=== PATIENT | male | born 1960 | race Caucasian/White ===

== ENCOUNTER 2024-11-12 22:00 | Observation (INO) | payer OTHER ==
--- NOTE | 2024-11-12 22:18 | ERPHSYRPT ---
- History of Present Illness Time Seen by Provider: 11/12/24 22:09 Historian: patient Exam Limitations: no limitations Patient Subjective Stated Complaint: "I was doing some light work about a half hour ago and I got this pain in my left chest that kind of feels like a marlen horse pressure. I thought it would go away but it hasn't and I did have to have open heart about 13 years ago". Triage Nursing Assessment: Pt presents to ER with complaints of left sided chest pains that started approx 15 minutes [employer]. Pt is alert and oriented x 3. Skin is pink, warm, and dry. Respirations are easy. Denies shortness of breath, dizziness, nausea/vomiting. Pt describes the pain as "like a marlen horse" and rates pain 2/10 scale. States it is not radiating anywhere. 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 Physician History: 64-year-old male with history of coronary artery disease with CABG, hypertension, hyperlipidemia presented in the ER with complaint of left-sided chest pain sudden onset while he was doing some light activity at home almost half an hour prior to arrival. Patient reported it felt like a charley horse/pressure sensation in left lower chest and soreness of left lower chest which is getting better now but still reports 2/10 intensity. Patient took 2 full dose aspirin prior to arrival. Denies any palpitations, difficulty breathing, dizziness/lightheadedness. Allergies/Adverse Reactions: No Known Drug Allergies Allergy (Unverified 11/12/24 22:15) Home Medications: Amlodipine Besylate 5 mg [Norvasc 5 mg] 5 mg PO DAILY 11/12/24 [History] Evolocumab [Repatha Syringe] 140 mg SQ UD 11/12/24 [History] Ezetimibe 10 mg [Zetia 10 MG] 10 mg PO DAILY 11/12/24 [History] Ezetimibe/Rosuvastatin Calcium [Rosuvastatin-Ezetimibe 40-10Mg] 1 each PO DAILY 11/12/24 [History] Losartan Potassium 50 mg [Cozaar 50 MG] 50 mg PO DAILY 11/12/24 [History] Metoprolol Succinate 25 mg Xl* [Toprol-Xl 25MG Tablets] 25 mg PO DAILY 11/12/24 [History] Hx Tetanus, Diphtheria Vaccination/Date Given: Yes Hx Influenza Vaccination/Date Given: No Hx Pneumococcal Vaccination/Date Given: No Immunizations Up to Date: No Travel Risk - International Travel Have you traveled outside of the country in past 3 weeks: No - Emerging Infectious Disease Are you exhibiting symptoms associated with any current EIDs: No - Review of Systems Constitutional: No Symptoms Ears, Nose, & Throat: No Symptoms Respiratory: No Symptoms Cardiac: Chest Pain Abdominal/Gastrointestinal: No Symptoms Genitourinary Symptoms: No Symptoms Musculoskeletal: No Symptoms Skin: No Symptoms Neurological: No Symptoms Psychological: No Symptoms Endocrine: No Symptoms Hematologic/Lymphatic: No Symptoms - Past Medical History Pertinent Past Medical History: Yes Neurological History: No Pertinent History ENT History: No Pertinent History Cardiac History: Coronary Artery Disease, High Cholesterol, Hypertension Respiratory History: No Pertinent History Endocrine Medical History: No Pertinent History Musculoskeletal History: No Pertinent History GI Medical History: No Pertinent History History: No Pertinent History Psycho-Social History: No Pertinent History Male Reproductive Disorders: No Pertinent History - Past Surgical History Past Surgical History: Yes Neuro Surgical History: No Pertinent History Cardiac: CABG Respiratory: No Pertinent History Gastrointestinal: Appendectomy Genitourinary: No Pertinent History Musculoskeletal: No Pertinent History Male Surgical History: No Pertinent History - Social History Smoking Status: Never smoker Exposure to second hand smoke: No Drug Use: none - Social Determinants of Health Will the patient participate in the screening: Yes Do you worry about a steady place to live?: No Do you have any problems with any of the following?: No known problems In the past 12 months,have you had to go without utilities?: No Transportation Issues: No Has anyone in your support network made you feel unsafe?: No Have you or anyone in your house had to go w/o enough food: No - Nursing Vital Signs Nursing Vital Signs: Initial Vital Signs Pulse Rate 49 L 11/12/24 22:01 Respiratory Rate 12 11/12/24 22:01 Blood Pressure 173/94 11/12/24 22:01 O2 Sat by Pulse Oximetry 98 11/12/24 22:01 Pain Scale Pain Intensity 2 - Physical Exam General Appearance: no apparent distress Eye Exam: PERRL/EOMI Ears, Nose, Throat Exam: normal ENT inspection Neck Exam: normal inspection, non-tender, supple, full range of motion Respiratory Exam: normal breath sounds, lungs clear Cardiovascular Exam: regular rate/rhythm, normal heart sounds Gastrointestinal/Abdomen Exam: soft, normal bowel sounds, No tenderness Back Exam: normal inspection, normal range of motion Extremity Exam: normal inspection, normal range of motion Neurologic Exam: alert, oriented x 3, cooperative Skin Exam: normal color SpO2 Interpretation: normal SpO2: 98 O2 Delivery: Room Air - Course EKG Interpreted by Me: RATE ([id number]), Sinus Francisco, NORMAL AXIS, NORMAL INTERVALS, Non-specific ST Changes Ordered Tests: Active Orders 24 hr Category Date Time Status Call Taker STAT Care 11/12/24 22:16 Active EKG-ER Only STAT Care 11/12/24 22:15 Active IV Insertion STAT Care 11/12/24 22:15 Active CHEST 1 VIEW (PORTABLE) Stat Exams 11/12/24 22:15 Taken CBC W DIFF Stat Lab 11/12/24 22:20 Completed CMP Stat Lab 11/12/24 22:20 Completed NT PRO BNPII Stat Lab 11/12/24 22:20 Completed TROPONIN Q4H Lab 11/12/24 22:20 Completed TROPONIN Q4H Lab 11/13/24 02:15 Ordered TROPONIN Q4H Lab 11/13/24 06:15 Ordered Medication Summary Generic Name Dose Route Start Last Admin Trade Name Freq PRN Reason Stop Dose Admin Sodium Chloride 1,000 mls @ 999 mls/hr 11/12/24 23:17 11/12/24 23:20 Sodium Chloride 0.9% 1000 Ml IV 11/13/24 00:17 999 mls/hr .Q1H1M STA Administration Discontinued Medications Generic Name Dose Route Start Last Admin Trade Name Freq PRN Reason Stop Dose Admin Sodium Chloride Confirm 11/12/24 23:19 Sodium Chloride 0.9% 1000 Ml Administered 11/12/24 23:20 Dose 1,000 mls @ ud .ROUTE .STK-MED ONE Lab/Rad Data: Laboratory Result Diagrams 11/12/24 22:20 11/12/24 22:20 Laboratory Results 11/12/24 11/12/24 11/12/24 Range/Units 22:20 22:20 22:20 WBC 6.9 (4.23-9.07) x10^3/uL RBC 4.63 (4.63-6.08) x10^6/uL Hgb 14.4 (13.7-17.5) g/dL Hct 42.6 (40.1-51.0) % MCV 92.0 (79.0-92.2) fL MCH 31.1 (25.7-32.2) pg MCHC 33.8 (32.3-36.5) g/dL RDW 11.9 (11.6-14.4) % Plt Count 196 (163-337) x10^3/uL MPV 10.0 (9.4-12.4) fL Gran % 41.0 (34.0-67.9) % Immature Gran % (Auto) 0.1 (0.001-0.429) % Nucleat RBC Rel Count 0.0 (0.00-0.2) % Eos # (Auto) 0.14 (0.04-0.54) x10^3/uL Immature Gran # (Auto) 0.01 (0.001-0.031) x10^3u/L Absolute Lymphs (auto) 3.28 (1.32-3.57) x10^3/uL Absolute Monos (auto) 0.60 (0.30-0.82) x10^3/uL Absolute Nucleated RBC 0.00 (0.00-0.012) x10^3u/L Lymphocytes % 47.8 (21.8-53.1) % Monocytes % 8.7 (5.3-12.2) % Eosinophils % 2.0 (0.8-7.0) % Basophils % 0.4 (0.2-1.2) % Absolute Granulocytes 2.80 (1.78-5.38) x10^3/uL Basophils # 0.03 (0.01-0.08) x10^3/uL Sodium 139 (135-145) mmol/L Potassium 4.3 (3.5-5.1) mmol/L Chloride 102 (98-107) mmol/L Carbon Dioxide 20 L (22-30) mmol/L Anion Gap 20.7 H (5-15) MEQ/L BUN 17 (9-20) mg/dL Creatinine 0.88 (0.66-1.25) mg/dL Estimated GFR 97.2 ML/MIN Glucose 110 H (74-106) mg/dL Calcium 9.4 (8.4-10.2) mg/dL Total Bilirubin 1.60 H (0.2-1.3) mg/dL AST 58 (17-59) U/L ALT 36 (0-50) U/L Alkaline Phosphatase 50 (38-126) U/L Troponin I < 0.012 (0.000-0.033) ng/mL NT-Pro-B Natriuret Pep < 20.0 (<300) pg/mL Serum Total Protein 8.0 (6.3-8.2) g/dL Albumin 5.1 H (3.5-5.0) g/dL - Progress Progress: improved, re-examined Air Movement: fair, good Progress Note: 11/12/24 23:39 Differential diagnosis, acute coronary syndrome, pneumonia, pneumothorax, chest wall pain, atypical chest pain, pulmonary embolism 64-year-old is evaluated in the ER for left lower chest pain started almost half an hour prior to arrival with started to improve after taking to full dose aspirin. Patient did not want any pain medication. EKG is sinus rhythm with no acute ST elevations. Chest x-ray is negative for any acute cardiopulmonary findings interpreted by me, official final read is pending. Has normal white count, chemistries fairly unremarkable with some element of dehydration and given fluids. On reevaluation patient still report having mild discomfort but does not want any pain medication. I believe with patient's history of CABG and pain starting less than half an hour prior to arrival, initial troponin are not very reliable and has risk factors which warrant trending of cardiac enzymes, offered observation admission which she agreed. I have discussed with Dr. Oneil, reviewed history, workup and patient is being admitted to hospitalist service. Complexity of problems addressed: Moderate to high acuity Complexity of data reviewed/analyzed: Moderate Risk of complication: Moderate to high Blood Culture(s) Obtained: No Antibiotics given: No Discussed with : Castillo Will see patient in: hospital (observation) Counseled pt/family regarding: lab results, diagnosis, need for follow-up, rad results Medical Desision Making - Discussion of managment Care discussed with:: hospitalist Reviewed:: Test results Agreed on:: Treatment plan, place in obs Will see patient: in hospital - Diagnostic Testing Diagnostic test were ordered, analyzed, and reviewed by me: Yes Radiological Interpretation: Interpreted by me, Reviewed by me - Risk of complications Low Risk: (You) The pt has a high risk of morbidity or mortality based on: Decision regarding hospitilization or escalation of hosp level of care ( what is is what is you exported is this something what is a wrong with him) - Departure Departure Disposition: Observation Clinical Impression: Chest pain, rule out acute myocardial infarction Condition: Stable Critical Care Time: No Referrals: DOCTOR,NO FAMILY [Primary Care Provider, UNKNOWN] - Follow up/PCP as directed
[2024-11-12 22:27] LABS: BASOPHIL % 0.4 % (0.2-1.2); Basophil (Absolute #) 0.03 x10^3/uL (0.01-0.08); Eosinophil (Absolute #) 0.14 x10^3/uL (0.04-0.54); Hematocrit 42.6 % (40.1-51.0); Hemoglobin 14.4 g/dL (13.7-17.5); IMMATURE GRAN # 0.01 x10^3u/L (0.001-0.031); IMMATURE GRAN % 0.1 % (0.001-0.429); Lymphocyte (Absolute #) 3.28 x10^3/uL (1.32-3.57); Lymphocytes % 47.8 % (21.8-53.1); Mean Corpuscular Hemoglobin 31.1 pg (25.7-32.2); Mean Corpuscular Hgb Concent. 33.8 g/dL (32.3-36.5); Monocytes % 8.7 % (5.3-12.2); Platelet Count 196 x10^3/uL (163-337); Red Blood Count 4.63 x10^6/uL (4.63-6.08); Red Cell Distribution Width 11.9 % (11.6-14.4); White Blood Count 6.9 x10^3/uL (4.23-9.07)
[2024-11-12 22:53] LABS: ALBUMIN 5.1 g/dL (3.5-5.0); ALKALINE PHOSPHATASE 50 U/L (38-126); ANION GAP 20.7 MEQ/L (5-15); BLOOD UREA NITROGEN 17 mg/dL (9-20); CHLORIDE 102 mmol/L (98-107); Calcium 9.4 mg/dL (8.4-10.2); Carbon Dioxide 20 mmol/L (22-30); Creatinine 1 0.88 mg/dL (0.66-1.25); EST GLOMERULAR FILTRATION RATE 97.2 ML/MIN; Glucose 110 mg/dL (74-106); Potassium 4.3 mmol/L (3.5-5.1); SGOT/AST 58 U/L (17-59); SGPT/ALT 36 U/L (0-50); SODIUM 139 mmol/L (135-145); TROPONIN < 0.012 ng/mL (0.000-0.033)
[2024-11-12] MEDS ORDERED: Sodium Chloride 0.9% 1000 ML 1,000 ML ONE (23:19)
[2024-11-12] MEDS: Sodium Chloride 0.9% 1000 ML 1,000 ML IV STA (23:20)
[2024-11-13] MEDS ORDERED: Nitrostat 0.4 MG Tablet SL PRN (00:42)
[2024-11-13] MEDS ORDERED: TYLENOL 325 MG PO PRN (00:42)
--- NOTE | 2024-11-13 01:10 | PCM.HP ---
History of Present Illness - Chief Complaint Chief Complaint: chest pain Date: 11/13/24 History of Present Illness: 64-year-old man with history of CAD with remote CABG, hypertension, and dyslipidemia, who presents with episode of chest pain. Patient was working in his garage when he had the sudden onset of left sided, sharp chest pain, described as feeling like a "charley horse", intermittent, lasting about 5 to 10 minutes. Worsened with leaning over, and relieved by standing up or lifting his arm. No associated dyspnea, nausea, diaphoresis, or numbness. He notes that he has been training for a triathlon next week, and ran 4 miles yesterday without any difficulty or similar symptoms. He has not had any recurrence of the symptoms since the initial 10-minute period. He had a prior CABG 13 years ago, but has had no problems since then. He has been compliant with his medications. He notes that his registered nurse renal put him on Repatha a few months ago. - Review of Systems All Other Systems: Reviewed and Negative Medications & Allergies Home Medications: Home Medication List Amlodipine Besylate 5 mg [Norvasc 5 mg] 5 mg PO DAILY 11/12/24 [History Confirmed 11/12/24] Evolocumab [Repatha Syringe] 140 mg SQ UD 11/12/24 [History Confirmed 11/12/24] Ezetimibe 10 mg [Zetia 10 MG] 10 mg PO DAILY 11/12/24 [History Confirmed 11/12/24] Ezetimibe/Rosuvastatin Calcium [Rosuvastatin-Ezetimibe 40-10Mg] 1 each PO DAILY 11/12/24 [History Confirmed 11/12/24] Losartan Potassium 50 mg [Cozaar 50 MG] 50 mg PO DAILY 11/12/24 [History Confirmed 11/12/24] Metoprolol Succinate 25 mg Xl* [Toprol-Xl 25MG Tablets] 25 mg PO DAILY 11/12/24 [History Confirmed 11/12/24] Aspirin EC 81 mg [Ecotrin 81 mg] 162 mg PO DAILY 11/13/24 [History Confirmed 11/13/24] Allergies/Adverse Reactions: Allergies Allergy/AdvReac Type Severity Reaction Status Date / Time No Known Drug Allergies Allergy Unverified 11/12/24 22:15 - Past Medical History Past Medical History: Yes Neurological History: No Pertinent History ENT History: No Pertinent History Cardiac History: Coronary Artery Disease, High Cholesterol, Hypertension Respiratory History: No Pertinent History Endocrine Medical History: No Pertinent History Musculoskelatal History: No Pertinent History GI Medical History: No Pertinent History History: No Pertinent History Pyscho-Social History: No Pertinent History Male Reproductive Disorders: No Pertinent History - Past Surgical History Past Surgical History: Yes Neuro Surgical History: No Pertinent History Cardiac History: CABG Respiratory Surgery: No Pertinent History GI Surgical History: Appendectomy Genitourinary Surgical Hx: No Pertinent History Musculskeletal Surgical Hx: No Pertinent History Male Surgical History: No Pertinent History Significant Family History: heart disease (Father with [place] at 60 y/o) - Social History Smoking Status: Never smoker Exposure to second hand smoke: No Alcohol: Occasionally Drug Use: none - Social Determinants of Health Will the patient participate in the screening: Yes Do you worry about a steady place to live?: No Do you have any problems with any of the following?: No known problems In the past 12 months,have you had to go without utilities?: No Have you or anyone in your house had to go without enough: No Transportation Issues: No Has anyone in your support network made you feel unsafe?: No Does the patient want assistance with any of the above?: No - Physical Exam Vital Signs: Vital Signs - 24 hr Temp Pulse Pulse Resp BP BP Pulse Ox 11/13/24 00:42 97.0 F 49 L 18 168/80 96 11/13/24 00:00 46 L 19 110/80 97 11/12/24 23:44 98 11/12/24 23:30 45 L 19 115/81 97 11/12/24 23:05 46 L 18 121/80 96 11/12/24 22:02 97.8 F 57 L 60 18 173/94 98 11/12/24 22:01 49 L 12 173/94 98 Physical Exam GEN: Sitting up in bed in no acute distress. HENT: Normocephalic, atraumatic. Moist mucous membranes. EYES: Normal inspection, anicteric sclera, extraocular movements intact. NECK: Supple, full range of motion CV: Regular rate and rhythm, no murmurs, no gallops. No JVD or edema. PULM: Clear to auscultation bilaterally, no work of breathing. On room air. ABD: Nondistended, nontender. MSK: No joint effusions, full range of motion SKIN: No rashes, normal color. NEURO: Face symmetric, no focal motor or sensory deficits. PSYCH: Alert, oriented x 3 Results - Labs Lab/Micro Results: Lab Results-Last 24 Hours 11/12/24 11/12/24 11/12/24 Range/Units 22:20 22:20 22:20 WBC 6.9 (4.23-9.07) x10^3/uL RBC 4.63 (4.63-6.08) x10^6/uL Hgb 14.4 (13.7-17.5) g/dL Hct 42.6 (40.1-51.0) % MCV 92.0 (79.0-92.2) fL MCH 31.1 (25.7-32.2) pg MCHC 33.8 (32.3-36.5) g/dL RDW 11.9 (11.6-14.4) % Plt Count 196 (163-337) x10^3/uL MPV 10.0 (9.4-12.4) fL Gran % 41.0 (34.0-67.9) % Immature Gran % (Auto) 0.1 (0.001-0.429) % Nucleat RBC Rel Count 0.0 (0.00-0.2) % Eos # (Auto) 0.14 (0.04-0.54) x10^3/uL Immature Gran # (Auto) 0.01 (0.001-0.031) x10^3u/L Absolute Lymphs (auto) 3.28 (1.32-3.57) x10^3/uL Absolute Monos (auto) 0.60 (0.30-0.82) x10^3/uL Absolute Nucleated RBC 0.00 (0.00-0.012) x10^3u/L Lymphocytes % 47.8 (21.8-53.1) % Monocytes % 8.7 (5.3-12.2) % Eosinophils % 2.0 (0.8-7.0) % Basophils % 0.4 (0.2-1.2) % Absolute Granulocytes 2.80 (1.78-5.38) x10^3/uL Basophils # 0.03 (0.01-0.08) x10^3/uL Sodium 139 (135-145) mmol/L Potassium 4.3 (3.5-5.1) mmol/L Chloride 102 (98-107) mmol/L Carbon Dioxide 20 L (22-30) mmol/L Anion Gap 20.7 H (5-15) MEQ/L BUN 17 (9-20) mg/dL Creatinine 0.88 (0.66-1.25) mg/dL Estimated GFR 97.2 ML/MIN Glucose 110 H (74-106) mg/dL Calcium 9.4 (8.4-10.2) mg/dL Total Bilirubin 1.60 H (0.2-1.3) mg/dL AST 58 (17-59) U/L ALT 36 (0-50) U/L Alkaline Phosphatase 50 (38-126) U/L Troponin I < 0.012 (0.000-0.033) ng/mL NT-Pro-B Natriuret Pep < 20.0 (<300) pg/mL Serum Total Protein 8.0 (6.3-8.2) g/dL Albumin 5.1 H (3.5-5.0) g/dL - Radiology Impressions Radiology Exams & Impressions: Radiology Procedures Category Date Time Status CHEST 1 VIEW (PORTABLE) Stat Exams 11/12/24 22:15 Taken Chest x-ray no infiltrates, effusions, or edema. (Images personally reviewed.) Assessment/Plan (1) Chest pain, rule out acute myocardial infarction Current Visit: Yes Status: Acute Assessment & Plan: 64-year-old man with history of CAD, hypertension, here with chest pain. ## Chest pain due to patient's history of CAD, main element of concern would be recurrent acute coronary syndrome. However, the pain is very atypical for this, occurring essentially at rest, worsened by body position and relieved by straightening, with no associated anginal equivalent symptoms. As well, patient is highly active, with no symptoms after running 4 miles yesterday. While differential includes pulmonary and psychiatric causes, most likely it was musculoskeletal in nature. However, worth observing to rule out the risk of severe compromise from ACS. Place in observation Monitor on telemetry Serial troponins PRN EKG for chest pain PRN nitroglycerin Follow-up with PCP for consideration of outpatient stress testing, but given that patient is highly active at baseline, if no evidence of acute [place], likely low need for further restratification ## CAD Continue home aspirin 162 mg daily, Crestor 40, Zetia 10, Toprol-XL 25 ## Hypertension blood pressure controlled currently. Continue Cozaar 50, amlodipine 5, Toprol-XL 25 CODE STATUS: Full code Prophylaxis: Low risk, encourage ambulation Diet: Regular Dispo: Place in observation, expect discharge to home later today once rule out [place] Entirety of encounter took place via live audio/video telemedicine device, with remote physician and patient in hospital, with the assistance of bedside nurse. Code(s): R07.9 - CHEST PAIN, UNSPECIFIED Telemedicine Encounter - Telemedicine Encounter Telemedicine Encounter: "The entirety of this encounter was performed via Telemedicine" This visit was performed using real-time audio and video connection between my location and thepatients locationwith the assistance of a surrogateat the patients location. Written or verbal consent was obtained from the patient/guardian to perform this visit [email or web address] . Any patient questions regarding the telemedicine interaction were answered.
[2024-11-13 05:16] VITALS: PULSE 52; O2SAT 97
[2024-11-13 05:20] LABS: Hemoglobin 13.5 g/dL (13.7-17.5); Mean Cell Volume 93.7 fL (79.0-92.2); Mean Corpuscular Hemoglobin 31.6 pg (25.7-32.2); Mean Corpuscular Hgb Concent. 33.8 g/dL (32.3-36.5); Mean Platelet Volume 10.2 fL (9.4-12.4); Platelet Count 184 x10^3/uL (163-337); Red Blood Count 4.27 x10^6/uL (4.63-6.08)
[2024-11-13 05:34] LABS: ANION GAP 15.9 MEQ/L (5-15); Calcium 9.1 mg/dL (8.4-10.2); Creatinine 1 0.8 mg/dL (0.66-1.25); EST GLOMERULAR FILTRATION RATE 100.1 ML/MIN
[2024-11-13 07:02] VITALS: BP 124/70; RESP 13; TEMP 98.3
--- NOTE | 2024-11-13 08:39 | XRAY ---
Indication: Chest pain. Comparison: None Portable demonstrates chunky right paratracheal calcified nodes and a few bibasilar calcified granulomas favoring old granulomatous disease. Remaining heart and lungs are unremarkable with incidental CABG. Bony thorax intact with osteopenia and minimal degenerative changes. Impression: Nonacute chest with chronic features.
--- NOTE | 2024-11-13 09:16 | PCM.DS ---
Discharge Summary Date of Admission: 11/13/24 00:30 Date of Discharge: 11/13/24 Admitting Physician: SELINA TIDWELL MD Primary Care Provider: NO FAMILY DOCTOR Allergies Allergies No Known Drug Allergies Allergy (Unverified 11/12/24 22:15) Hospital Summary - Hospital Course Hospital Course: Mr. Crenshaw is a 64 year old male with with a history of coronary artery disease status post CABG, hypertension, and dyslipidemia who was admitted for evaluation of atypical chest pain. The episode occurred at rest while bending over in his garage and was described as sharp, left-sided discomfort, lasting 510 minutes, and relieved with positional changes. There were no associated exertional symptoms, dyspnea, diaphoresis, or other anginal equivalents. He reported no recurrence of symptoms and noted high functional capacity, having recently run 4 miles without limitation. During his observation stay, the patient remained hemodynamically stable. Serial troponins were negative, and EKGs showed no ischemic changes. Chest X-ray demonstrated chunky right paratracheal calcified lymph nodes and scattered bibasilar calcified granulomas, most consistent with remote granulomatous disease; no acute cardiopulmonary findings were noted. Given complete resolution of pain, negative cardiac workup, and the absence of high-risk features, the presentation is most consistent with musculoskeletal chest wall pain. The patient is requesting discharge home and is clinically appropriate for outpatient management. 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 He will continue his current cardiac and antihypertensive regimen, including aspirin, statin, beta-olga, and antihypertensives. I spent 35 minutes [id number] with the patient on the day of discharge performing discharge exam, discussing hospital stay and discharge instructions with patient and caregivers, preparation of discharge records, prescriptions & referral forms and addressing any questions/concerns the patient had as documented above. - Vitals & Intake/Output Vital Signs: Vital Signs Temperature 98.3 F 11/13/24 07:02 Pulse Rate 52 L 11/13/24 07:02 Respiratory Rate 13 11/13/24 07:02 Blood Pressure 124/70 11/13/24 07:02 O2 Sat by Pulse Oximetry 97 11/13/24 07:02 Intake & Output: Intake & Output 11/10/24 11/11/24 11/12/24 11/13/24 11:59 11:59 11:59 11:59 Intake Total 350 Balance 350 Weight 84.7 kg - Lab Result Diagrams: 11/13/24 05:10 11/13/24 05:10 Lab Results-Last 24 Hrs: Lab Results-Last 24 Hours 11/12/24 11/12/24 11/12/24 Range/Units 22:20 22:20 22:20 WBC 6.9 (4.23-9.07) x10^3/uL RBC 4.63 (4.63-6.08) x10^6/uL Hgb 14.4 (13.7-17.5) g/dL Hct 42.6 (40.1-51.0) % MCV 92.0 (79.0-92.2) fL MCH 31.1 (25.7-32.2) pg MCHC 33.8 (32.3-36.5) g/dL RDW 11.9 (11.6-14.4) % Plt Count 196 (163-337) x10^3/uL MPV 10.0 (9.4-12.4) fL Gran % 41.0 (34.0-67.9) % Immature Gran % (Auto) 0.1 (0.001-0.429) % Nucleat RBC Rel Count 0.0 (0.00-0.2) % Eos # (Auto) 0.14 (0.04-0.54) x10^3/uL Immature Gran # (Auto) 0.01 (0.001-0.031) x10^3u/L Absolute Lymphs (auto) 3.28 (1.32-3.57) x10^3/uL Absolute Monos (auto) 0.60 (0.30-0.82) x10^3/uL Absolute Nucleated RBC 0.00 (0.00-0.012) x10^3u/L Lymphocytes % 47.8 (21.8-53.1) % Monocytes % 8.7 (5.3-12.2) % Eosinophils % 2.0 (0.8-7.0) % Basophils % 0.4 (0.2-1.2) % Absolute Granulocytes 2.80 (1.78-5.38) x10^3/uL Basophils # 0.03 (0.01-0.08) x10^3/uL Sodium 139 (135-145) mmol/L Potassium 4.3 (3.5-5.1) mmol/L Chloride 102 (98-107) mmol/L Carbon Dioxide 20 L (22-30) mmol/L Anion Gap 20.7 H (5-15) MEQ/L BUN 17 (9-20) mg/dL Creatinine 0.88 (0.66-1.25) mg/dL Estimated GFR 97.2 ML/MIN Glucose 110 H (74-106) mg/dL Calcium 9.4 (8.4-10.2) mg/dL Total Bilirubin 1.60 H (0.2-1.3) mg/dL AST 58 (17-59) U/L ALT 36 (0-50) U/L Alkaline Phosphatase 50 (38-126) U/L Troponin I < 0.012 (0.000-0.033) ng/mL NT-Pro-B Natriuret Pep < 20.0 (<300) pg/mL Serum Total Protein 8.0 (6.3-8.2) g/dL Albumin 5.1 H (3.5-5.0) g/dL 11/13/24 11/13/24 11/13/24 Range/Units 02:01 05:10 05:10 WBC 6.0 (4.23-9.07) x10^3/uL RBC 4.27 L (4.63-6.08) x10^6/uL Hgb 13.5 L (13.7-17.5) g/dL Hct 40.0 L (40.1-51.0) % MCV 93.7 H (79.0-92.2) fL MCH 31.6 (25.7-32.2) pg MCHC 33.8 (32.3-36.5) g/dL RDW 12.0 (11.6-14.4) % Plt Count 184 (163-337) x10^3/uL MPV 10.2 (9.4-12.4) fL Gran % (34.0-67.9) % Immature Gran % (Auto) (0.001-0.429) % Nucleat RBC Rel Count (0.00-0.2) % Eos # (Auto) (0.04-0.54) x10^3/uL Immature Gran # (Auto) (0.001-0.031) x10^3u/L Absolute Lymphs (auto) (1.32-3.57) x10^3/uL Absolute Monos (auto) (0.30-0.82) x10^3/uL Absolute Nucleated RBC (0.00-0.012) x10^3u/L Lymphocytes % (21.8-53.1) % Monocytes % (5.3-12.2) % Eosinophils % (0.8-7.0) % Basophils % (0.2-1.2) % Absolute Granulocytes (1.78-5.38) x10^3/uL Basophils # (0.01-0.08) x10^3/uL Sodium (135-145) mmol/L Potassium (3.5-5.1) mmol/L Chloride (98-107) mmol/L Carbon Dioxide (22-30) mmol/L Anion Gap (5-15) MEQ/L BUN (9-20) mg/dL Creatinine (0.66-1.25) mg/dL Estimated GFR ML/MIN Glucose (74-106) mg/dL Calcium (8.4-10.2) mg/dL Total Bilirubin (0.2-1.3) mg/dL AST (17-59) U/L ALT (0-50) U/L Alkaline Phosphatase (38-126) U/L Troponin I < 0.012 < 0.012 (0.000-0.033) ng/mL NT-Pro-B Natriuret Pep (<300) pg/mL Serum Total Protein (6.3-8.2) g/dL Albumin (3.5-5.0) g/dL // Range/Units 05:10 WBC (4.23-9.07) x10^3/uL RBC (4.63-6.08) x10^6/uL Hgb (13.7-17.5) g/dL Hct (40.1-51.0) % MCV (79.0-92.2) fL MCH (25.7-32.2) pg MCHC (32.3-36.5) g/dL RDW (11.6-14.4) % Plt Count (163-337) x10^3/uL MPV (9.4-12.4) fL Gran % (34.0-67.9) % Immature Gran % (Auto) (0.001-0.429) % Nucleat RBC Rel Count (0.00-0.2) % Eos # (Auto) (0.04-0.54) x10^3/uL Immature Gran # (Auto) (0.001-0.031) x10^3u/L Absolute Lymphs (auto) (1.32-3.57) x10^3/uL Absolute Monos (auto) (0.30-0.82) x10^3/uL Absolute Nucleated RBC (0.00-0.012) x10^3u/L Lymphocytes % (21.8-53.1) % Monocytes % (5.3-12.2) % Eosinophils % (0.8-7.0) % Basophils % (0.2-1.2) % Absolute Granulocytes (1.78-5.38) x10^3/uL Basophils # (0.01-0.08) x10^3/uL Sodium 139 (135-145) mmol/L Potassium 4.0 (3.5-5.1) mmol/L Chloride 105 (98-107) mmol/L Carbon Dioxide 22 (22-30) mmol/L Anion Gap 15.9 H (5-15) MEQ/L BUN 13 (9-20) mg/dL Creatinine 0.80 (0.66-1.25) mg/dL Estimated GFR 100.1 ML/MIN Glucose 102 (74-106) mg/dL Calcium 9.1 (8.4-10.2) mg/dL Total Bilirubin (0.2-1.3) mg/dL AST (17-59) U/L ALT (0-50) U/L Alkaline Phosphatase (38-126) U/L Troponin I (0.000-0.033) ng/mL NT-Pro-B Natriuret Pep (<300) pg/mL Serum Total Protein (6.3-8.2) g/dL Albumin (3.5-5.0) g/dL - Radiology Exams Ordered Rad Exams-Entire Visit: Radiology Procedures Category Date Time Status CHEST 1 VIEW (PORTABLE) Stat Exams 11/12/24 22:15 Completed - Procedures and Test Procedures and Tests throughout Hospitalization: Therapy Orders & Screens 11/13/24 00:42 EKG PRN Comment: Discharge Exam General Appearance: no apparent distress Neurologic Exam: alert, oriented x 3, cooperative Eye Exam: PERRL Ears, Nose, Throat Exam: normal ENT inspection Neck Exam: normal inspection Respiratory Exam: normal breath sounds, lungs clear Cardiovascular Exam: regular rate/rhythm, normal heart sounds Gastrointestinal/Abdomen Exam: soft, normal bowel sounds Male Genitalia Exam: deferred Rectal Exam: deferred Back Exam: normal inspection Extremity Exam: normal inspection Skin Exam: normal color Final Diagnosis/Problem List - Final Discharge Diagnosis/Problem (1) Chest pain, rule out acute myocardial infarction Current Visit: Yes Status: Acute Assessment & Plan: -No features concerning for acute coronary syndrome -Negative troponin series and unremarkable EKG --Symptoms resolved without recurrence -advised to monitor for any recurrence of symptoms. Follow up with outpatient cardiology. Return to ED for any chest discomfort, dyspnea, or other concerning symptoms Code(s): R07.9 - CHEST PAIN, UNSPECIFIED (2) CAD (coronary artery disease) Current Visit: Yes Status: Acute Assessment & Plan: -Clinically stable without evidence of ischemia -Continue current cardiac medications including aspirin 162 mg daily, Crestor 40 mg, Zetia 10 mg, and Repatha per cardiology. Maintain regular outpatient cardiology follow-up Code(s): I25.10 - ATHSCL HEART DISEASE OF [place] CORONARY ARTERY W/O ANG PCTRS (3) HTN (hypertension) Current Visit: Yes Status: Acute Assessment & Plan: -stable continue home meds Code(s): I10 - ESSENTIAL (PRIMARY) HYPERTENSION (4) HLD (hyperlipidemia) Current Visit: Yes Status: Acute Assessment & Plan: -continue statin Code(s): E78.5 - HYPERLIPIDEMIA, UNSPECIFIED (5) Granulomatous disease, chronic Current Visit: Yes Status: Acute Assessment & Plan: -CXR with chronic calcified lymph nodes and granulomas, no acute findings -No further workup indicated at this time Code(s): D71 - FUNCTIONAL DISORDERS OF POLYMORPHONUCLEAR NEUTROPHILS - Discharge Discharge Date: 11/13/24 Disposition: Home, Self-Care Condition: Stable Prescriptions: Continue Metoprolol Succinate 25 mg Xl* [Toprol-Xl 25MG Tablets] 25 mg PO DAILY Amlodipine Besylate 5 mg [Norvasc 5 mg] 5 mg PO DAILY Losartan Potassium 50 mg [Cozaar 50 MG] 50 mg PO DAILY Ezetimibe/Rosuvastatin Calcium [Rosuvastatin-Ezetimibe 40-10Mg] 1 each PO DAILY Ezetimibe 10 mg [Zetia 10 MG] 10 mg PO DAILY Evolocumab [Repatha Syringe] 140 mg SQ UD Aspirin EC 81 mg [Ecotrin 81 mg] 162 mg PO DAILY Follow up with: DOCTOR,NO FAMILY [Primary Care Provider, UNKNOWN] JUDI LEONARD [CONSULTING PHYSICIAN, CARDIOLOGY] - Call for Appointment
[2024-11-13] MEDS ORDERED: ECOTRIN 81 MG PO SCH (10:00)
[2024-11-13] MEDS ORDERED: NORVASC 5 MG PO SCH (10:00)
[2024-11-13] MEDS ORDERED: Zetia 10 MG PO SCH (10:00)
[2024-11-13] MEDS ORDERED: Toprol-Xl 25MG Tablets PO SCH (10:00)
[2024-11-13] MEDS ORDERED: Cozaar 50 MG PO SCH (10:00)
== END 2024-11-13 11:04 | disposition home or self-care (01) ==
LOC: ED 22:00 → MED SURG 11-13 00:30
PROVIDERS: ADMIT Internal Medicine; ATTEND Internal Medicine
DX: R07.9 Chest pain, unspecified (principal); I25.10 Atherosclerotic heart disease of native coronary artery without angina pectoris; I10 Essential (primary) hypertension; E78.5 Hyperlipidemia, unspecified; Z95.0 Presence of cardiac pacemaker; D71 Functional disorders of polymorphonuclear neutrophils; Z79.899 Other long term (current) drug therapy
CPT/HCPCS: 36415; 71045; 80048; 80053; 83880; 84484; 85025; 85027; 93005; 93041; 93268; 99285; G0378; Q3014